=== PATIENT | male | born 1990 | race Caucasian/White ===

== ENCOUNTER 2018-06-09 02:18 | Emergency (ER) | payer SELFPAY ==
[2018-06-09] MEDS: IBUPROFEN 600 MG TAB PO (03:29)
[2018-06-09] MEDS: DIPHTH/TET/ACEL PERTUSS (ADULT) 0.5 ML VIAL IM* (03:30)
[2018-06-09] MEDS: LIDOCAINE 1% (MDV) 10 ML INJ INJ (03:40)
[2018-06-09] MEDS: MECLIZINE 12.5 MG TAB PO (05:51)
== END 2018-06-09 09:57 | disposition home or self-care (01) ==
LOC: E/R 02:18
DX: F10.920 Alcohol use, unspecified with intoxication, uncomplicated (principal); Y00.XXXA Assault by blunt object, initial encounter; Z23 Encounter for immunization
CPT/HCPCS: 12013; 70450; 70486; 90471; 90715; 99284-25